=== PATIENT | male | born 1990 | race Caucasian/White ===

== ENCOUNTER 2016-10-21 13:43 | Emergency (ER) | payer OTHER ==
[2016-10-21 14:06] VITALS: BP 116/67; PULSE 68; RESP 18; TEMP 98.6; O2SAT 95
--- NOTE | 2016-10-21 14:08 | UCPHY ---
H & P Patient Type: Established Time Seen by Provider: 10/21/16 14:05 HPI/ROS: CHIEF COMPLAINT: Right eye swelling HISTORY OF PRESENT ILLNESS: Patient is a 26-year-old otherwise healthy man who comes to the emergency complaining of right-sided upper eyelid swelling and mild discharge. No visual acuity changes. No foreign body sensation. No trauma. He does have mild yellowish discharge. No fevers. REVIEW OF SYSTEMS: Constitutional: denies: chills, fever, recent illness, recent injury EENTM: See HPI Respiratory: denies: cough, shortness of breath Cardiac: denies: chest pain, irregular heart rate, lightheadedness, palpitations Gastrointestinal/Abdominal: denies: abdominal pain, diarrhea, nausea, vomiting, blood streaked stools Genitourinary: denies: dysuria, frequency, hematuria, pain Musculoskeletal: denies: joint pain, muscle pain Skin: denies: lesions, rash, jaundice, bruising Neurological: denies: headache, numbness, paresthesia, tingling, dizziness, weakness Hematologic/Lymphatic: denies: blood clots, easy bleeding, easy bruising Immunologic/allergic: denies: HIV/AIDS, transplant EXAM: GENERAL: Well-appearing, well-nourished and in no acute distress. HEAD: Atraumatic, normocephalic. EYES: The mild inflammation and edema to upper eyelid and eye lash follicles who mild erythema, crusting head eye lashes, no photophobia ENT: TMs normal, nares patent, oropharynx clear without exudates. Moist mucous membranes. NECK: Normal range of motion, supple without lymphadenopathy or JVD. LUNGS: Breath sounds clear to auscultation bilaterally and equal. No wheezes rales or rhonchi. HEART: Regular rate and rhythm without murmurs, rubs or gallops. ABDOMEN: Soft, nontender, normoactive bowel sounds. No guarding, no rebound. No masses appreciated. BACK: No CVA tenderness, no spinal tenderness, step-offs or deformities EXTREMITIES: Normal range of motion, no pitting or edema. No clubbing or cyanosis. NEUROLOGICAL: Cranial nerves II through XII grossly intact. Normal speech, normal gait. 5/5 strength, normal movement in all extremities, normal sensation PSYCH: Normal mood, normal affect. SKIN: Warm, dry, normal turgor, no visible rashes or lesions. Source: Patient Exam Limitations: No limitations - Medical/Surgical History Hx Asthma: No Hx Chronic Respiratory Disease: No Hx Diabetes: No Hx Cardiac Disease: No Hx Renal Disease: No Hx Cirrhosis: No Hx Alcoholism: No Other PMH: collarbone surg - Family History Significant Family History: No pertinent family hx - Social History Smoking Status: Never smoked Alcohol Use: Sober Drug Use: None Constitutional: Initial Vital Signs Temperature (C) 37.0 C 10/21/16 13:50 Heart Rate 68 10/21/16 13:50 Respiratory Rate 18 10/21/16 13:50 Blood Pressure 116/67 10/21/16 13:50 O2 Sat (%) 95 10/21/16 13:50 O2 Delivery Mode Room Air Allergies/Adverse Reactions: No Known Allergies Allergy (Unverified 10/21/16 14:00) Home Medications: Medication Instructions Recorded Erythromycin Base [Erythromycin] 1 gm OP QID #1 oint...g. 10/21/16 Medical Decision Making ED Course/Re-evaluation: Patient has blepharitis clinically. I will start him on antibiotic drops and have him follow up with Ophthalmology. He understands and agrees with this plan. Declines further workup or testing at this time Differential Diagnosis: Partial list of the Differential diagnosis considered include but were not limited to; conjunctivitis, blepharitis, corneal abrasion and although unlikely based on the history and physical exam, I also considered tear duct stone, trauma, iritis, glaucoma. I discussed these differential diagnoses and the plan with the patient as well as the usual and expected course. The patient understands that the diagnosis is provisional and that in medicine we are not always correct and that further workup is often warranted. Usual and customary warnings were given. All of the patient's questions were answered. The patient was instructed to return to the emergency department should the symptoms at all worsen or return, otherwise to followup with the physician as we discussed. - Data Points Medications Given: Discontinued Medications Erythromycin (Erythromycin 0.5%) 1 jassi EACHEYE ONCE ONE Stop: 10/21/16 14:11 Last Admin: 10/21/16 14:29 Dose: 1 jassi Departure - Departure Disposition: Home, Routine, Self-Care Clinical Impression: Blepharitis Qualifiers: Blepharitis type: unspecified type Laterality: right Eyelid: upper Qualified Code(s): H01.001 - Unspecified blepharitis right upper eyelid Condition: Fair Instructions: Blepharitis (ED) Referrals: Cj Mosher [Medical Doctor] - As per Instructions Prescriptions: Erythromycin Base [Erythromycin] 1 gm OP QID #1 oint...g. - PQRS PQRS Measurement: Not applicable
[2016-10-21] MEDS ORDERED: ERYTHROMYCIN 0.5% 1 GM OPHT.OINT EACHEYE ONE (14:10)
== END 2016-10-21 14:35 | disposition home or self-care (01) ==
LOC: CED 13:43
DX: H01.001 Unspecified blepharitis right upper eyelid (principal)
CPT/HCPCS: 99214-PO; G0463-PO